=== PATIENT | male | born 1970 | race Caucasian/White ===

== ENCOUNTER 2020-12-27 07:54 | Outpatient (RCR) | payer OTHER, SELFPAY | END 2021-01-22 11:30 | disposition home or self-care (01) | LOC: HO.WCC 07:54 | PROVIDERS: PCP Internal Medicine; Visit Provider Surgery | DX: E10.621 Type 1 diabetes mellitus with foot ulcer (principal); L97.521 Non-pressure chronic ulcer of other part of left foot limited to breakdown of skin; E10.40 Type 1 diabetes mellitus with diabetic neuropathy, unspecified | CPT/HCPCS: 97597; 99212; 99214 ==

== ENCOUNTER → 2021-01-11 13:27 | Outpatient (BNVA) | payer OTHER, SELFPAY | PROVIDERS: PCP Internal Medicine; Visit Provider Internal Medicine Endocrinology, Diabetes & Metabolism | DX: E13.9 Other specified diabetes mellitus without complications (principal); E11.42 Type 2 diabetes mellitus with diabetic polyneuropathy; E11.319 Type 2 diabetes mellitus with unspecified diabetic retinopathy without macular edema; E08.21 Diabetes mellitus due to underlying condition with diabetic nephropathy; Z79.4 Long term (current) use of insulin; E29.1 Testicular hypofunction; E03.8 Other specified hypothyroidism; E06.3 Autoimmune thyroiditis; E78.5 Hyperlipidemia, unspecified; E66.9 Obesity, unspecified; K90.0 Celiac disease; I10 Essential (primary) hypertension | CPT/HCPCS: 82947 ==

== ENCOUNTER 2021-01-25 16:10 | Outpatient (REF) | payer OTHER, SELFPAY ==
[2021-01-25 18:18] LABS: Blood Urea Nitrogen 20 mg/dL (9-16); Estimated Glomerular Filt Rate > 60
== END 2021-01-25 16:11 | disposition home or self-care (01) ==
LOC: HO.LAB 16:10
PROVIDERS: PCP Internal Medicine; Visit Provider Podiatrist
DX: Z01.812 Encounter for preprocedural laboratory examination (principal)
CPT/HCPCS: 36415; 82565; 84520

== ENCOUNTER 2021-02-07 11:47 | Day surgery (SDC) | payer OTHER, SELFPAY ==
--- NOTE | 2021-02-05 14:05 | HP_ITS ---
DATE OF SERVICE: 02/07/2021 DATE OF PROPOSED SURGERY: February 07, 2021. PREOPERATIVE DIAGNOSES: 1. Osteomyelitis of the left great toe. 2. Arthritis of the left hallux interphalangeal joint. PLANNED PROCEDURES: 1. Incision of infected bone cortex, left foot. 2. Bone biopsy and bone culture, left foot. PLANNED ANESTHESIA: Local anesthesia. CHIEF COMPLAINT AND HISTORY OF PRESENT ILLNESS: Mr. Paz is a 50-year-old male who relates a history of nonhealing ulcer on the bottom of his left great toe, present over the past several months duration. The patient was initially cared for by his machine maintenance repairer in the [facility] and recently moved to our area where I assumed his care on November 28, 2020. The patient has been treated at the [facility] and continues to have chronic recurrent ulceration and the patient most recently had an MRI performed, which was positive for acute osteomyelitis. The patient has now been scheduled for surgical treatment of the infected bone with specific antibiotic focus therapy based on bone culture and pathology evaluation. PAST MEDICAL HISTORY: Remarkable for insulin-dependent diabetes, arthritis, depression, fibromyalgia, hypertension, celiac disease, PTSD. CURRENT MEDICATIONS: The patient is taking Crestor, clonazepam, NovoLog, montelukast, metformin, losartan, Jardiance, cyclobenzaprine, azelastine, Lantus, testosterone, omeprazole, Duloxetine, bupropion, diltiazem, gabapentin, tadalafil, doxazosin. ALLERGIES: THE PATIENT HAS NEGATIVE REACTION TO PENICILLIN. FAMILY HISTORY: Unknown. Both parents are . SOCIAL HISTORY: The patient denies smoking, denies use of alcohol. The patient does drink 4 cups of coffee or more per day and also does relate use of marijuana. PODIATRIC PHYSICAL EXAMINATION: VASCULAR EXAM: The patient displays +2/4 pulses DP and PT arteries bilateral with normal capillary refill time noted in bilateral feet. DERMATOLOGIC EXAM: Reveals an ulceration on the plantar and medial aspect of the left hallux interphalangeal joint measuring most recently on January 31, 2021, 5 mm x 4 mm x 2 to 3 mm in depth. NEUROLOGIC EXAM: Reveals decreased sensation in bilateral feet. ORTHOPEDIC EXAM: Reveals digital contracture, 1st through 5th digits of bilateral feet, left great toe being the most severe. The patient was seen most recently in my office on January 31, 2021. He is compliant with surgical treatment for his infected bone to help heal his nonhealing ulceration of his left foot. Preoperative informed consent will be obtained on the day of surgery. MEGHAN Perea/TRUNG / [id number]
--- NOTE | 2021-02-06 12:04 | P.CONAN_ITS ---
HPI - Anesthesia Eval Consult details Narrative: 50yo M for Incision of Bone Cortex, Bone Biopsy & Bone Culture [facility] Active Problems Active Problems: All Active Problems (Updated 01/11/21 @ 14:39 by Ashley Mejias MD) Diabetic nephropathy associated with secondary diabetes mellitus (Acute) Diabetic retinopathy (Acute) Diabetes 1.5, managed as type 1 (Acute) Celiac disease (Acute) Obesity (BMI 30.0-34.9) (Acute) Hypertension (Acute) Dyslipidemia (Acute) Hypothyroidism (Acute) Hypogonadism male (Acute) Diabetic polyneuropathy associated with type 2 diabetes mellitus (Acute) [facility] (current) use of insulin (Acute) Past Medical History Medical History (Updated 01/11/21 @ 14:39 by Ashley Mejias MD) Celiac disease Diabetes 1.5, managed as type 1 Diabetic nephropathy associated with secondary diabetes mellitus Diabetic polyneuropathy associated with type 2 diabetes mellitus Diabetic retinopathy Dyslipidemia Hypertension Hypogonadism male 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 Obesity (BMI 30.0-34.9) Family History Family History (Updated 01/11/21 @ 14:01 by PEGGY Bennett) Unknown Adopted Unknown family medical history Surgical History Surgical History (Updated 01/11/21 @ 13:50 by PEGGY Bennett) Hx of foot surgery Social History Social History (Updated 01/11/21 @ 14:02 by PEGGY Bennett) Alcohol intake: current Alcohol intake frequency: holidays/special occasions on ly Smoking Status: Never smoker Meds Home Medications Medication Instructions Recorded Confirmed Last Taken Type bupropion HCl 150 mg 24 hr tablet, mg PO 01/11/21 01/11/21 Unknown History extended release clonazepam 0.5 mg tablet 0.5 mg PO BID PRN 01/11/21 01/11/21 Unknown History cyclobenzaprine 10 mg tablet 10 mg PO BEDTIME tab 01/11/21 01/11/21 Unknown History diltiazem HCl 300 mg 300 mg PO DAILY 01/11/21 01/11/21 Unknown History capsule,extended release 24 hr doxazosin 2 mg tablet 6 mg PO Q OTHER DAY PRN 01/11/21 01/11/21 Unknown History duloxetine 60 mg capsule,delayed 90 mg PO DAILY cap 01/11/21 01/11/21 Unknown History release empagliflozin 25 mg tablet 25 mg PO DAILY 01/11/21 01/11/21 Unknown History fluticasone propionate 50 INTRANASAL 01/11/21 01/11/21 Unknown History mcg/actuation nasal spray,suspension gabapentin 400 mg capsule 400 mg PO TID cap 01/11/21 01/11/21 Unknown History gemfibrozil 600 mg tablet 600 mg PO BID 01/11/21 01/11/21 Unknown History insulin aspart U-100 100 unit/mL See Rx Instructions SUBCUT TID 01/11/21 01/11/21 Unknown History (3 mL) subcutaneous pen insulin glargine 100 unit/mL (3 36 unit SUBCUT BEDTIME ml 01/11/21 01/11/21 Unknown History mL) subcutaneous pen losartan 100 mg tablet 100 mg PO DAILY 01/11/21 01/11/21 Unknown History metformin 1,000 mg tablet 1,000 mg PO BID 01/11/21 01/11/21 Unknown History omeprazole 40 mg capsule,delayed mg PO 01/11/21 01/11/21 Unknown History release pen needle, diabetic, safety 30 #100 ea 01/11/21 01/11/21 Unknown History gauge x 1/3 rosuvastatin 40 mg tablet 40 mg PO DAILY 01/11/21 01/11/21 Unknown History tadalafil 20 mg tablet mg PO 01/11/21 01/11/21 Unknown History testosterone 20.25 mg/1.25 gram 2 pump TRANSDERMAL DAILY g 01/11/21 01/11/21 Unknown History (1.62 %) transdermal gel pump Exam Exam Date and Time: February 06, 2021 1204 Pertinent Lab Results Pertinent Lab Results: Laboratory Tests 01/25/21 16:26 BUN 20 H Creatinine 1.18 Laboratory Tests 01/11/21 14:04 Hgb A1c (Clinic) 7.3 H Assessment and Plan Assessment Anesthesia Assessment: Chart Reviewed
[2021-02-07 12:14] VITALS: BMI 30.6
[2021-02-07 12:17] VITALS: BP 153/79; PULSE 89; RESP 16; TEMP 37.2; O2SAT 95
--- NOTE | 2021-02-07 12:34 | MHC.SHP ---
Pre-Procedural Eval Section B Chief Complaint: osteomylitis Allergies: Allergies Allergy/AdvReac Type Severity Reaction Status Date / Time Penicillins Allergy Hives Verified 02/07/21 12:15 Plan I have reviewed the history and physical and performed a pertinent physical examination on my patient. No changes have occurred unless specified.
[2021-02-07 13:27] VITALS: BP 142/84; PULSE 81; RESP 18; TEMP 37.4; O2SAT 96
--- NOTE | 2021-02-07 13:27 | PM.PROC ---
Brief Operative Note Date of procedure: 02/07/21 Pre-op diagnosis: osteomyelitis left great toe and arthritis left hallux ipj Post-op diagnosis: same Procedure: incision of bone cortex left hallux, bone biopsy left hallux Anesthesia: local Surgeon: Gabino Hutchison Vision Specialist: Marisa Zamudio Estimated blood loss (mL): 1.0 Condition: stable Disposition: same day
--- NOTE | 2021-02-07 16:50 | OP_ITS ---
SURGEON: Gabino Hutchison DPM PREOPERATIVE DIAGNOSIS: POSTOPERATIVE DIAGNOSIS: PROCEDURE PERFORMED: ESTIMATED BLOOD LOSS: COMPLICATIONS: ANESTHESIA: Consisted of local administration of a total of 4.5 mL of an equal mix of 2% lidocaine with epinephrine 1:100,000 and 0.5% Marcaine plain. Intravenous sedation was not needed, strictly local. ASSISTANTS: Dr. Zamudio. SPECIMENS: PREOPERATIVE DIAGNOSES: 1. Osteomyelitis, left great toe, proximal phalangeal head. 2. Arthritis of the left hallux, interphalangeal joint. POSTOPERATIVE DIAGNOSES: 1. Osteomyelitis, left great toe, proximal phalangeal head. 2. Arthritis of the left hallux, interphalangeal joint. PROCEDURES PERFORMED: 1. Incision of bone cortex, left great toe. 2. Bone biopsy and bone culture of the left great toe. INTRODUCTION: The patient was brought to the operating room, placed on the operating table in supine position. After having been suitably anesthetized with local infiltrative anesthesia, the left lower extremity was then prepped and draped in usual sterile manner. Please note that prior to the start of the procedure, the left foot was exsanguinated utilizing Esmarch bandage and left ankle tourniquet was inflated to 250 mmHg pressure for the duration of the procedures. INCISION OF BONE CORTEX WITH BONE BIOPSY AND BONE CULTURE, LEFT GREAT TOE. Attention was directed to the dorsal aspect of the left great toe, where an inverted L incision was placed, the longer arm of the L being placed on the dorsal medial aspect and shorter arm being placed transversely at the level of the interphalangeal joint. The incisions were deepened in the same plane. Hemostasis was acquired as necessary. The skin margins were underscored and retracted. A transverse incision was effected through the extensor tendon complex at the level of the interphalangeal joint and the extensor tendon was underscored and retracted. There was found to be some degenerative changes to the articular surface, particularly on the medial aspect of the head of the proximal phalanx and using a bone rongeur, sample was taken for microbiology as well as a bone biopsy for pathology. Then, utilizing a sagittal saw, the proximal phalanx was osteotomized, removing the hypertrophic head of the proximal phalanx entirely. Incision was made through deeper structures down to the level of the ulceration and there was found to be no gross necrosis of the deep subcutaneous tissue. There was found to be hypertrophy of the some of flexor tendon and some of the hypertrophic tendon were resected. The wound was irrigated with copious pulse lavage therapy. Prior to this, also culture was taken of the deep wound prior to the lavage. The extensor tendon was caught to maintain utilizing 3-0 Vicryl. Skin margins were closed with 3-0 nylon as well as 4-0 nylon. CONCLUSION: At the inclusion of these procedures, the operative site was injected with 3 mL of Marcaine 0.5% plain. Operative site was dressed with Xeroform and Betadine-soaked gauze, Kerlix fluffs, and Conform. The patient tolerated the surgery and anesthesia well and left the operating room via cart to the recovery room with vital signs stable. FINAL DISPOSITION: The patient was discharged to home with instructions for self-care and include the followin. To keep the dressings dry, clean, and intact. 2. To keep the left leg elevated with ice above the ankle. 3. To take all medications as prescribed. 4. To limit activity to minimum. 5. To always use surgical shoe with either walker or crutches, partial weightbearing of left foot. The patient was also given a prescription for Levaquin 750 mg total number of 14 sig 1 p.o. daily. MEGHAN Perea/TRUNG / [id number]
== END 2021-02-07 14:09 | disposition home or self-care (01) ==
PROVIDERS: PCP Internal Medicine; Visit Provider Podiatrist
PROC: (CPT 28005; principal; 2021-02-07 13:10)
DX: E13.69 Other specified diabetes mellitus with other specified complication (principal); E13.42 Other specified diabetes mellitus with diabetic polyneuropathy; E11.21 Type 2 diabetes mellitus with diabetic nephropathy; M86.9 Osteomyelitis, unspecified; I10 Essential (primary) hypertension; M19.072 Primary osteoarthritis, left ankle and foot; Z79.4 Long term (current) use of insulin; Z79.899 Other long term (current) drug therapy
CPT/HCPCS: 28005; 20240; 87071; 87073; 87205; 88304; 88311; J1100; J3590

== ENCOUNTER → 2021-02-15 10:28 | Outpatient (BNVA) | payer OTHER, SELFPAY | PROVIDERS: PCP Internal Medicine; Visit Provider Dietitian, Registered | DX: E13.9 Other specified diabetes mellitus without complications (principal); K90.0 Celiac disease | CPT/HCPCS: 97802 ==

== ENCOUNTER 2021-03-21 14:39 | Outpatient (REF) | payer OTHER, SELFPAY ==
[2021-03-21 16:21] LABS: Hematocrit 49.5 % (42-52); Hemoglobin 16.7 g/dl (14.0-18.0)
[2021-03-21 16:55] LABS: Alanine Aminotransferase 15 U/L (0-40); Albumin Level 4.4 g/dL (3.5-5.0); Alkaline Phosphatase 56 U/L (39-117); Anion Gap 14 (12-20); Aspartate Amino Transferase 11 U/L (5-37); Bilirubin Total 0.5 mg/dL (0.0-1.0); Blood Urea Nitrogen 18 mg/dL (9-16); Calcium 9.6 mg/dL (8.4-10.2); Carbon Dioxide 25 mmol/L (22-29); Chloride 98 mmol/L (96-108); Cholesterol 137 mg/dL; Estimated Glomerular Filt Rate > 60; Glucose Fasting 148 mg/dL (60-99); HDL Cholesterol 47 mg/dL; LDL Cholesterol Calculated 66 mg/dl; Sodium 133 mmol/L (135-145); Total Protein 7.1 g/dL (6.5-8.0); Triglycerides 123 mg/dL
[2021-03-21 16:58] LABS: Creatinine Urine 34.51 mg/dL
[2021-03-21 17:11] LABS: Free T4 (Free Thyroxine) 0.94 ng/dL (0.71-1.85); Thyroid Stimulating Hormone 1.01 uIU/mL (0.32-4.0); Vitamin D 25-OH Total 79.1 ng/mL (>30)
[2021-03-21 17:13] LABS: Vitamin B12 1240 pg/mL (200-900)
[2021-03-21 17:41] LABS: Prostate Specific Antigen 0.28 ng/mL (<0.05-4.0)
[2021-03-22 10:16] LABS: C Peptide 0.88 ng/mL (0.80-3.85); Prolactin 4.1 ng/mL (2.0-18.0)
[2021-03-22 11:32] LABS: Sex Hormone Binding Globulin 17 nmol/L (10-50)
[2021-03-23 12:57] LABS: LDL Cholesterol Direct 72 mg/dL (<100)
[2021-03-25 14:22] LABS: Glutamic acid decarboxylase Ab <5 IU/mL (<5)
[2021-03-26 18:52] LABS: Testosterone, Free 145.5 pg/mL (35.0-155.0); Testosterone, Total 627 ng/dL (250-1100)
[2021-03-27 16:36] LABS: Insulinoma associated 2 aatb <5.4 U/mL (<5.4)
[2021-03-27 21:27] LABS: Testosterone-Albumin 4.4 g/dL (3.6-5.1); Testosterone-Bioavailable 275.7 ng/dL (110.0-575.0); Testosterone-SHBG 18 nmol/L (10-50); Testosterone-Total 610 ng/dL (250-1100)
[2021-03-28 08:16] LABS: Islet Cell Antibody Screen NEGATIVE (NEGATIVE)
== END 2021-03-21 14:40 | disposition home or self-care (01) ==
LOC: HO.LAB 14:39
PROVIDERS: PCP Internal Medicine; Visit Provider Internal Medicine Endocrinology, Diabetes & Metabolism
DX: E11.42 Type 2 diabetes mellitus with diabetic polyneuropathy (principal); E29.1 Testicular hypofunction; E03.8 Other specified hypothyroidism; E06.3 Autoimmune thyroiditis; I10 Essential (primary) hypertension; E66.9 Obesity, unspecified; K90.0 Celiac disease; E11.319 Type 2 diabetes mellitus with unspecified diabetic retinopathy without macular edema; Z79.4 Long term (current) use of insulin; Z71.3 Dietary counseling and surveillance
CPT/HCPCS: 36415; 80053; 80061; 82043; 82306; 82607; 82947; 83721; 84146; 84153; 84270; 84402; 84403; 84439; 84443; 84681; 85014; 85018; 86255; 86341